=== PATIENT | female | born 1995 | race Caucasian/White ===

== ENCOUNTER 2025-01-21 12:35 | Outpatient (REF) | payer OTHER, SELFPAY ==
[2025-01-21 18:08] LABS: MANUAL DIFF FLAG NO
[2025-01-21 18:10] LABS: Appearance Urine Clear; Glucose Urine UA Negative (Negative); PH 7.5 (5.0-9.0); Specific Gravity - Urine 1.015 (1.005-1.025); UMIC TRIGGER UACC YES
[2025-01-21 18:15] LABS: Hematocrit 43.2 % (37.0-47.0); Hemoglobin 14.6 g/dl (12.0-16.0); Imm Gran Abs Auto 0.02 X10*3/uL (0.00-0.03); Imm Gran Pct Auto 0.3 % (0.0-0.4); Lymphocytes Absolute Auto 1.8 X10*3/uL (1.2-4.9); Mean Corpuscular HGB Conc 33.8 g/dl (31.0-35.0); Mean Corpuscular Hemoglobin 29.6 pg (27.0-33.0); Mean Corpuscular Volume 87.6 fL (80.0-98.0); NRBC Abs Auto 0.000 X10*3/uL (0.0-0.012); NRBC Pct Auto 0.0 /100WBC (0.0-0.2); Platelet Count 307 X10*3/uL (160-400); Red Blood Count 4.93 X10*6/uL (4.20-5.50); White Blood Count 7.5 X10*3/uL (4.8-10.8)
[2025-01-21 18:43] LABS: Alanine Aminotransferase 23 U/L (0-31); Albumin Level 5.1 g/dL (3.5-5.0); Alkaline Phosphatase 80 U/L (39-117); Anion Gap 12 (12-20); Aspartate Amino Transferase 25 U/L (5-31); Blood Urea Nitrogen 9 mg/dL (9-16); Calcium 9.9 mg/dL (8.4-10.2); Carbon Dioxide 27 mmol/L (22-29); Chloride 106 mmol/L (96-108); Cholesterol 169 mg/dL (<200); Estimated Glomerular Filt Rate > 60; HDL Cholesterol 54 mg/dL (>40); Potassium 4.0 mmol/L (3.3-5.1); Sodium 141 mmol/L (135-145); Total Protein 8.1 g/dL (6.5-8.0); Triglycerides 102 mg/dL (<150)
[2025-01-21 19:01] LABS: Folate 12.3 ng/mL (> or = 4.0); Vitamin B12 646 pg/mL (200-900)
[2025-01-22 03:12] LABS: CT PCR Urine NOT DETECTED (Not Detect.); NG PCR Urine NOT DETECTED (Not Detect.)
[2025-01-22 13:09] LABS: Syphilis Screen Nonreactive (Nonreactive)
[2025-01-22 13:33] LABS: HBS Num1 52.52 mIU/mL (0-7.99); HBsAGNum1 0.39 S/CO (0.00-0.99); HIV Num 1 0.05 S/CO (0.00-0.99); Hepatitis B Surface Antigen Negative (Negative); ~HepC Num1 0.13 S/CO (0.00-0.79); ~Hepatitis B Surface Antibody REACTIVE (Nonreactive); ~Hepatitis C Antibody Nonreactive (Nonreactive)
[2025-01-24 18:43] LABS: Chlamydia Trachomatis IgA <1:16 titer (<1:16)
[2025-01-25 23:08] LABS: VITAMIN D (1,25 OH) D3 62 pg/mL; Vit D (1,25-Dihydroxy) Total 62 pg/mL (18-72); Vitamin D (1,25 OH) D2 <8 pg/mL
== END 2025-01-21 12:36 | disposition home or self-care (01) ==
LOC: HO.HKASLDS 12:35
PROVIDERS: Visit Provider Student in an Organized Health Care Education/Training Program
DX: Z76.89 Persons encountering health services in other specified circumstances (principal); Z13.9 Encounter for screening, unspecified; Z13.31 Encounter for screening for depression; Z13.220 Encounter for screening for lipoid disorders; Z13.1 Encounter for screening for diabetes mellitus; Z13.6 Encounter for screening for cardiovascular disorders; Z11.4 Encounter for screening for human immunodeficiency virus [HIV]; Z20.2 Contact with and (suspected) exposure to infections with a predominantly sexual mode of transmission; E53.8 Deficiency of other specified B group vitamins; G43.009 Migraine without aura, not intractable, without status migrainosus; I49.9 Cardiac arrhythmia, unspecified; L70.0 Acne vulgaris
CPT/HCPCS: 80053; 80061; 81001; 82607; 82652; 82746; 83036; 85025; 86631; 86632; 86706; 86780; 86803; 87340; 87389; 87491; 87591; 96127

== ENCOUNTER 2025-01-21 12:35 | Outpatient (AMB) | payer OTHER, SELFPAY ==
--- NOTE | 2025-01-21 12:40 | A.OFFPC_ITS ---
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 Intake Note: vitamin b-12 check Customer Service Sales Consultant Required: No Accompanied by: Self / Same As Patient Allergies Iodinated Contrast Media (IV Contrast Dye) Allergy (Mild, Verified 01/21/25 12:47) Hives montelukast (From Singulair) Allergy (Mild, Verified 01/21/25 12:47) stomach pain Tobacco use date assessed: 01/21/25 Dental Screening Dental Screen Date: 01/21/25 Did you have a dental visit in the last 12 months?: No Did you have a dental problem in the last 6 months where you did not have access to dental care?: No Was dental information given to patient?: No HPI HPI Comments History of Present Illness Details History of Present Illness The patient is a 29-year-old female presenting with low Vitamin B12 levels, acne, and concerns about potential POTS and EDS. Low Vitamin B12 levels: - History of receiving monthly B12 injec tions for two years, with a family history of pernicious anemia. - No formal diagnosis of pernicious anem ia, and no recent B12 level checks since moving from [place]. Acne: - Currently managed with spironolactone 100 mg, previously prescribed by a abstracter. - No recent lab work related to spironol actone use, and aware of the need to monitor potassium levels. Suspected Postural Orthostatic Tachycardia Syndrome (POTS): - Symptoms include lightheadedness, ting ling, and numbness in arms and legs, with a suggestion from previous PCP and lehr cutter to pursue diagnosis. - No formal diagnosis or treatment initi ated yet. 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 - No formal diagnosis or treatment initi ated yet. Supraventricular Tachycardia (SVT): - Idiopathic SVT with no current medicat ion or recent emergency room visits. - Monitored by a lehr cutter once a mushtaq manzano Gastroparesis: - Diagnosed a few years ago, managed wit h Zofran for nausea, but no definitive treatment for gastroparesis. - Symptoms include occasional lingering nausea. Migraine: - Managed with Nurtec, with no further d etails provided. Review of Systems - Cardiovascular: Reports lightheadednes s and idiopathic supraventricular tachycardia. Denies recent emergency room visits for SVT. - Neurological: Reports tingling and num bness in arms and legs. Denies dizziness during examination. - Gastrointestinal: Reports occasional n ausea. Denies current treatment for gastroparesis. - Musculoskeletal: Reports hypermobility and joint dislocations without injury. Denies swelling in legs. - Dermatological: Reports acne managed w ith spironolactone. 10-point ROS reviewed and negative excep t as noted in HPI Past Medical History - Family history of pernicious anemia - History of gastroparesis - History of idiopathic supraventricular tachycardia Health Maintenance - Preventative care: Chlamydia, gonorrhe a, and syphilis screening discussed and agreed upon. - Vaccinations: Discussed need for flu a nd COVID vaccines, pending availability at the clinic. Physical Exam General: Well-appearing, in no acute distress. Vital signs: Within normal limits. HEENT: Normocephalic, atraumatic. PERRLA, EOMI. Conjunctiva clear, sclera anicteric. Oropharynx clear, mucous membranes moist. TMs intact bilaterally. Neck: Supple, no lymphadenopathy, no thyromegaly, no JVD or carotid bruits. Cardiovascular: RRR, normal S1/S2, no murmurs, rubs, or gallops. Peripheral pulses 2+ and symmetric. No edema. Respiratory: Lungs clear to auscultation bilaterally, no wheezes, rales, or rhonchi. Normal effort. Abdomen: Soft, non-tender, non-distended. Normoactive bowel sounds. No hepatosplenomegaly, no masses. MSK: Full range of motion, no joint swelling or deformity. Normal gait. Issues with hypermobility and joint dislocations, particularly in hands and knees. Skin: Warm, dry, intact. No rashes, lesions, or pallor. Neuro: Alert and oriented x3. Cranial nerves II-XII intact. Strength 5/5 throughout. Sensation intact. Reflexes 2+ symmetric. Normal coordination and gait. Reports lightheadedness, tingling, and numbness in arms and legs. Psych: Appropriate mood and affect. Normal judgment and insight. Plan 1. Low Vitamin B12 Levels - Plan to check Vitamin B12 levels and c onsider further evaluation for pernicious anemia if levels are low. 2. 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 3. Migraine - Continue current management with Nurte c. 4. Supraventricular Tachycardia (Svt) - Continue annual cardiology follow-up f or monitoring SVT. 5. Suspected Postural Orthostatic Tachyc ardia Syndrome (Pots) - Plan to discuss further diagnostic guerrero luation for POTS in future visits. 6. Gastroparesis - No current treatment plan, but monitor symptoms and consider further evaluation if symptoms persist. 7. Acne - Refill spironolactone prescription and monitor potassium levels due to medication use. Discussion Notes During the visit, we discussed the need to check Vitamin B12 levels and consider further evaluation for pernicious anemia. We also addressed the refill of spironolactone for acne and the importance of monitoring potassium levels. F uture diagnostic evaluations for suspected POTS and EDS were considered, and the patient was advised to continue annual cardiology follow-ups for SVT. We also discussed the management of gastroparesis symptoms and the continuation of Nurtec for migraines. Preventative care measures, including STI screening and vaccinations, were also reviewed. Patient Instructions - Schedule a follow-up appointment to re view lab results and discuss further evaluation for POTS and EDS. - Continue taking spironolactone as pres cribed and monitor for any side effects. - Follow up with your lehr cutter casey tejada for SVT monitoring. - Monitor gastroparesis symptoms and rep ort any changes. - Continue using Nurtec for migraine man agement. - Complete STI screening as discussed. - Plan to receive flu and COVID vaccines when available. PFSH Family History (Updated 01/21/25 @ 12:51 by Brinda Campos MA) Father FH: kidney cancer High blood pressure Mother Skin cancer Cardiac arrhythmia Mitral valve prolapse Arthritis Social History (Updated 01/21/25 @ 12:52 by Brinda Campos MA) Housing: Apartment Alcohol intake: current Alcohol intake frequency: a few times a week Patient Tobacco Use Status: Never used Tobacco service: No Current occupational status: employed Cognitive needs: No Hearing needs: No Vision needs: No Questionnaire PHQ-9 Over the last 2 weeks, how often have you been bothered by any of the following problems? 1. Little interest or pleasure in doing things: not at all 2. Feeling down, depressed, or hopeless: not at all 3. Trouble falling or staying asleep, or sleeping too much: several days 4. Feeling tired or having little energy: several days 5. Poor appetite or overeating: several days 6. Feeling bad about yourself - or that you are a failure or have let yourself or your family down: not at all 7. Trouble concentrating on things, such as reading the newspaper or watching television: not at all 8. Moving or speaking so slowly that other people could have noticed. Or the opposite - being so fidgety or restless that you have been moving around a lot more than usual: not at all 9. Thoughts that you would be better off or of hurting yourself in some way: not at all Total score: 3 Source: Developed by Drs. Anthony Enciso, Linh Hernandez, Nael Blum and colleagues, with an educational zenobia from [employer]. Thrive Questionnaire Date Thrive assessed: 01/14/25 I am a: Patient What is your living situation today?: I have a steady place to live Within the past 12 months, did the food you bought not last and you didn't have the money to get more?: Never true Within the past 12 months, did you worry whether your food would run out before you got money to buy more?: Never true Do you have trouble paying for medicines?: No Do you have trouble getting transportation to medical appointments?: No Do you have trouble paying your heating and electricity bill?: No Do you have trouble taking care of your child, family member or friend?: No Do you have trouble with day-to-day activities such as bathing, preparing meals, shopping, managing finances, etc.?: No Are you currently unemployed and looking for a job?: No Are you interested in more education?: No Please select the resources that you would like help with: None Currently or been in a relationship where the following occur: I choose not to answer THRIVE Score: 0 AUDIT C Alcohol Use Questionnaire (AUDIT-C) 1. How often do you have a drink containing alcohol?: 2-4 times a month 2. How many drinks containing alcohol do you have on a typical day when you are drinking?: 1 or 2 3. How often do you have six or more drinks on one occasion?: Less than monthly Total Score: 3 ALEM-7 AMB Questionnaire ALEM-7 Date ALEM - 7 assessed: 01/21/25 Feeling nervous, anxious, or on edge: 1 = Several days Not being able to stop or control worryin = Not at all Worrying too much about different things: 0 = Not at all Trouble relaxin = Several days Being so restless that it is hard to sit still: 0 = Not at all Becoming easily annoyed or irritable: 1 = Several days Feeling afraid as if something awful might happen: 0 = Not at all Total ALEM-7 score (0-4 normal; 5-9 mild; 10-14 moderate; 15-21 severe): 3 Source: Developed by Drs. Anthony Enciso, Linh Hernandez, Nael Blum and colleagues, with an educational zenobia from [employer]. Physical exam (Primary Care) Vital Signs: Last Vital Signs Temp 97.6 F 01/21/25 12:44 Pulse 86 01/21/25 12:44 Resp 16 01/21/25 12:44 BP 100/76 01/21/25 12:44 Pulse Ox 98 01/21/25 12:44 Oxygen Delivery Method Room Air 01/21/25 12:44 BMI result Body Mass Index 23.3 Tobacco/Smoking Status: Tobacco use Status Tobacco use date assessed 01/21/25 01/21/25 12:42 Patient Tobacco Use Status Never used Tobacco 01/21/25 12:52 PHQ-9: PHQ-9 Score PHQ-9: Total score 3 01/21/25 12:55 Thrive Assessment: Date of Thrive Assessment Date Thrive assessed 01/14/25 01/21/25 12:42 Currently or been in a relationship where the following occur: I choose not to answer Coding Level of Care Code New Pt Level 3 (20637) Diagnoses Encounter to establish care with new provider Z76.89 Encounter for screening, unspecified Z13.9 Screening for depression Z13.31 Screening for lipoid disorders Z13.220 Screening for diabetes mellitus Z13.1 Hypertension screen Z13.6 Routine screening for STI (sexually transmitted infection) Z11.3 Screening for HIV (human immunodeficiency virus) Z11.4 B12 deficiency E53.8 Migraine without aura and without status migrainosus, not intractable G43.009 Migraine type: migraine (< 15 days per month) without aura Status migrainosus presence: without status migrainosus Intractability: not intractable Supraventricular arrhythmia I49.9 Acne vulgaris L70.0 Acne type: acne vulgaris Assessment & Plan Assessment & Plan (1) Encounter to establish care with new provider: Code(s): Z76.89 - Persons encountering health services in other specified circumstances (2) Encounter for screening, unspecified: Code(s): Z13.9 - Encounter for screening, unspecified (3) Screening for depression: Code(s): Z13.31 - Encounter for screening for depression (4) Screening for lipoid disorders: Code(s): Z13.220 - Encounter for screening for lipoid disorders (5) Screening for diabetes mellitus: Code(s): Z13.1 - Encounter for screening for diabetes mellitus (6) Hypertension screen: Code(s): Z13.6 - Encounter for screening for cardiovascular disorders (7) Routine screening for STI (sexually transmitted infection): Code(s): Z11.3 - Encounter for screening for infections with a predominantly sexual mode of transmission (8) Screening for HIV (human immunodeficiency virus): Code(s): Z11.4 - Encounter for screening for human immunodeficiency virus [HIV] (9) B12 deficiency: Code(s): E53.8 - Deficiency of other specified B group vitamins (10) Migraine: Code(s): G43.909 - Migraine, unspecified, not intractable, without status migrainosus Qualifiers: Migraine type: migraine (< 15 days per month) without aura Status migrainosus presence: without status migrainosus Intractability: not intractable Qualified Code(s): G43.009 - Migraine without aura, not intractable, without status migrainosus (11) Supraventricular arrhythmia: Code(s): I49.9 - Cardiac arrhythmia, unspecified (12) Acne: Code(s): L70.9 - Acne, unspecified Qualifiers: Acne type: acne vulgaris Qualified Code(s): L70.0 - Acne vulgaris Plan Orders: Orders Hepatitis B Surface Antigen Today Z13.9 - Encounter for screening, unspecified, Z76.89 - Persons encountering health services in other specified circumstances HIV Ab/Ag Today Z13.9 - Encounter for screening, unspecified, Z76.89 - Persons encountering health services in other specified circumstances Lipid Panel Today Z13.9 - Encounter for screening, unspecified, Z76.89 - Persons encountering health services in other specified circumstances Vitamin B12 and Folate Today Z13.9 - Encounter for screening, unspecified, Z76.89 - Persons encountering health services in other specified circumstances Vitamin D 1,25 dihydroxy Today Z13.9 - Encounter for screening, unspecified, Z76.89 - Persons encountering health services in other specified circumstances Chlamydia Species Ab Panel Today Z13.9 - Encounter for screening, unspecified, Z76.89 - Persons encountering health services in other specified circumstances Syphilis Screen Today Z13.9 - Encounter for screening, unspecified, Z76.89 - Persons encountering health services in other specified circumstances Complete Blood Count Auto Diff Today Z13.9 - Encounter for screening, unspecified, Z76.89 - Persons encountering health services in other specified circumstances Comprehensive Met. Panel Today Z13.9 - Encounter for screening, unspecified, Z76.89 - Persons encountering health services in other specified circumstances Hemoglobin A1c Today Z13.9 - Encounter for screening, unspecified, Z76.89 - Persons encountering health services in other specified circumstances Hepatitis B Surface Antibody Today Z13.9 - Encounter for screening, unspecified, Z76.89 - Persons encountering health services in other specified circumstances Hepatitis C Antibody Today Z13.9 - Encounter for screening, unspecified, Z76.89 - Persons encountering health services in other specified circumstances UA CC w/rflx Micro + Cult Today Z13.9 - Encounter for screening, unspecified, Z76.89 - Persons encountering health services in other specified circumstances CT NG by PCR Urine Today Z13.9 - Encounter for screening, unspecified, Z76.89 - Persons encountering health services in other specified circumstances
[2025-01-21 12:44] VITALS: BP 100/76; PULSE 86; RESP 16; TEMP 36.4; O2SAT 98; BMI 23.3
== END 2025-01-21 13:15 | disposition home or self-care (01) ==
LOC: HO.HMCFMS 12:35
PROVIDERS: Visit Provider Student in an Organized Health Care Education/Training Program
DX: G43.009 Migraine without aura, not intractable, without status migrainosus (principal); E53.8 Deficiency of other specified B group vitamins; I49.9 Cardiac arrhythmia, unspecified; L70.0 Acne vulgaris

== ENCOUNTER 2025-03-04 13:46 | Outpatient (AMB) | payer OTHER, SELFPAY ==
--- NOTE | 2025-03-04 13:48 | A.OFFVIS_ITS ---
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 POTS Intake Note: New patient lightheaded hx SVT ? 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 Patient says she has had history of palpitations for 15 years. She says she gets 2 different kinds of palpitation where she feels rapid heart rate as well as fluttering in his chest. She has had Holter monitor and had in the past has been diagnose with SVT. The last Holter monitor was done about a year ago. I have asked her if she can get a copy of that report to us to review it. However since few months she has been noticing symptoms of lightheadedness especially when she gets up suddenly. She has not had actual syncopal episode. She notices elevated heart rate with it. She has since then tried to manage this with increase fluid intake and this has resulted in improved symptoms although she continues to have the se symptoms. She has been referred here for further evaluation. She is currently taking spironolactone for acne. She has no exertional chest pain or shortness of breath. She has no orthopnea, PND, leg edema. She has skeletal hypermobility and is currently being evaluated for connective tissue disorder such as Issac-Danlos. Family history of mother having mitral valve prolapse PFSH Medical History Issac-Danlos disease POTS (postural orthostatic tachycardia syndrome) Family History Father FH: kidney cancer High blood pressure Mother Skin cancer Cardiac arrhythmia Mitral valve prolapse Arthritis Social History Housing: Apartment Alcohol intake: current Alcohol intake frequency: a few times a week Patient Tobacco Use Status: Never used Tobacco service: No Current occupational status: employed Cognitive needs: No Hearing needs: No Vision needs: No Review of Systems Const Denies chills, Denies daytime sleepiness, Denies fatigue, Denies fever(s), Denies frequent falls, Denies poor appetite, Denies snoring, Denies stops breathing during sleep, Denies weakness, Denies weight gain and Denies weight loss Eyes Denies loss of vision ENT Reports dizziness and Denies hearing loss Card Denies chest pain, Denies claudication, Denies leg edema, Reports lightheadedness, Reports palpitations, Denies dyspnea, Denies dyspnea on exertion and Denies orthopnea Resp Denies cough, Denies excessive phlegm production, Denies dyspnea, Denies dyspnea on exertion, Denies snoring and Denies wheezing GI Denies abdominal pain, Denies hematochezia, Denies change in bowel habits, Denies nausea and Denies vomiting Denies urinary frequency and Denies dysuria Musc Denies arthralgias, Denies muscle weakness and Denies numbness Skin/Breast Denies nail changes and Denies rash Neuro Denies Abnormal speech present, Reports dizziness, Denies frequent falls, Denies loss of vision, Denies memory loss, Denies numbness and Denies weakness Psych Denies depression and Denies memory loss Endo Denies fatigue and Reports palpitations Raj/Lymph Reports easy bruising and Reports other (anemia) Aller/Immun Denies wheezing Physical Exam Vital Signs: Last Vital Signs Pulse 68 03/04/25 14:09 BP 120/72 03/04/25 14:09 BMI result Body Mass Index 23.3 Const General: cooperative, comfortable, no acute distress, well developed, alert, awake and Physically active Nutritional Appearance: well nourished and thin Orientation/consciousness: patient oriented x3 Limitations: no limitations HEENT Head: Yes normocephalic and Yes atraumatic Neck Neck: Yes trachea midline, Yes supple and Yes no JVD Resp Effort & Inspection: normal respiratory effort Auscultation: clear to auscultation bilaterally Cardio Jugular venous distension: no JVD Palpation: normal PMI Rate: regular rate Rhythm: regular rhythm Heart sounds: S1 normal heart sound present, S2 normal heart sound present, no click, no gallops, no murmurs and no rubs GI Auscultation: normal bowel sounds Skin General skin exam: no rashes or lesions noted Neuro General: patient oriented x3 and no focal motor deficits Speech: No Abnormal speech present Extrem General: Yes no clubbing, cyanosis or edema Psych Appearance: grossly normal Assessment & Plan Assessment & Plan (1) Lightheadedness: Code(s): R42 - Dizziness and giddiness Category: Medical Plan: Patient with a possibility of connective tissue disorder with symptoms of lightheadedness. She has no significant EKG abnormalities. However she is likely to have postural orthostatic tachycardia or some form of dysautonomia. She needs further evaluation for the same. We had a long discussion about autonomic dysfunction with subsequent syndrome as off POTS as well as vasovagal syncope. Most important treatment is increase fluid as well as salt intake. She has started to do that. Given her family history of mitral valve prolapse as well as her history of skeletal hypermobility will evaluate for structural cardiac abnormality with an echocardiogram especially to evaluate for aortic size as well as mitral valve prolapse as LV function. Echocardiogram will be done in near future. To diagnose and evaluate for dysautonomia will suggest a head-up tilt-table test. These tests will be scheduled in near future. She understands agrees. Will acquire her older Holter monitor. If she continues to have significant symptoms of palpitation may require further fdc monitoring and this was discussed with her. We discussed about potentially investing in smart phone based EKG sensor. She will look into it. Will follow up in the clinic after above-mentioned test. Thank you for allowing me to partake in her care Orders: Orders ECG Tilt Table Test 03/04/25 R42 - Dizziness and giddiness CA echo transthoracic complete 03/04/25 R42 - Dizziness and giddiness Coding Level of Care Code New Pt Level 4 (24119) Complex EM visit Add On G2211 Diagnoses Lightheadedness R42
[2025-03-04 13:49] VITALS: BP 131/79; PULSE 70; BMI 23.3
[2025-03-04 14:05] VITALS: BP 124/70; PULSE 65
[2025-03-04 14:09] VITALS: BP 120/72; PULSE 68
== END 2025-03-04 14:29 | disposition home or self-care (01) ==
LOC: HO.HCS 13:46
PROVIDERS: PCP Student in an Organized Health Care Education/Training Program; Visit Provider Internal Medicine Cardiovascular Disease
DX: R42 Dizziness and giddiness (principal)
CPT/HCPCS: 99204

== ENCOUNTER → 2025-04-05 10:41 | Outpatient (REF) | payer OTHER, SELFPAY ==
--- NOTE | 2025-04-05 10:43 | CA_ITS ---
Transthoracic Echocardiogram Patient (Last, First, Middle): Diallo Pandey, Gender: Female Date of : 1995 Age: 29 Procedure Date: 04/05/2025 Procedure Type: Transthoracic Echocardiogram Location: OP Height: 177.8 cm Weight: 72.58 kg BSA: 1.90 m2 Heart Rate: 60 bpm BP: 116 / 60 mmHg Complex Manager: DANYA Referring MD: Nolan Hinojosa MD Symptoms: R42 - Dizziness and giddiness Study Quality: Adequate ECG Rhythm: Sinus Conclusions: - The left ventricular systolic function is normal. The visually estimated ejection fraction is between 55-60%. - No obvious valvular pathology seen on this study. Findings Left Ventricle Normal left ventricular cavity size. There is normal left ventricular wall thickness. The left ventricular systolic function is normal. The visually estimated ejection fraction is between 55-60%. There is no evidence of regional wall motion abnormalities. Diastolic function is normal for age. Right Ventricle Normal right ventricular cavity size and systolic function. Atria Both atria are normal in size. Aortic Valve There is a normal trileaflet aortic valve. There is no aortic valve stenosis. There is no aortic valve regurgitation. Mitral Valve The mitral valve appears normal. There is trace mitral valve regurgitation. There is no mitral valve stenosis. Pulmonic Valve The pulmonic valve is likely normal. Tricuspid Valve Normal tricuspid valve structure. There is trace tricuspid valve regurgitation. There is no evidence of pulmonary hypertension. Great Vessels The asc aorta is normal in size. Venous The inferior vena cava is normal in size and collapses greater than 50% with inspiration. Pericardium/Pleural There is no evidence of pericardial effusion. Prior Study Comparison No prior study available for comparison. Recommendations, Care & Conclusions No obvious valvular pathology seen on this study. Measurements 2D Linear Measurements IVSd: 0.84 0.6-0.9/0.6-1.0 cm LVIDd: 4.96 3.9-5.3/4.2-5.9 cm LVIDd Index: 2.61 2.4-3.2/2.2-3.1 cm/m2 LVIDs: 3.54 2.0-3.6 cm LVPWd: 0.73 0.7-1.1 cm LA Diam: 3.20 2.7-3.8/3.0-4.0 cm LAIDs Index: 1.68 1.5-2.3 cm/m2 LV Mass: 163.08 67-162/88-224 g LV Mass Index: 85.83 43-95/49-115 g/m2 LVOT Diam: 2.00 3.0+(-)1.3 cm 2D Systolic Function EF 4C: 55.50 >55% EF 2C: 71.90 >55% EF BiP: 66.20 >55% Mitral Valve MV Pk E: 0.68 MV PK A: 0.58 MV Decel Time: 202.00 E/A: 1.20 E'Lateral: 15.10 E'Medial: 11.10 E/E' Med: 6.10 E/E' Lat: 4.50 PHT: 59.00 MVA PHT: 3.73 Decel [place]: 3.35 Aortic Valve AoV Pk Brant: 1.13 AoV Mn Brant: 0.71 AoV VTI: 0.30 AoV Pk Grad: 5.00 Aov Mn Grad: 2.00 ZAK Cont.VTI: 2.39 LVOT LVOT Pk Brant: 1.01 LVOT Mn Brant: 0.69 LVOT VTI: 0.23 LVOT Pk Grad: 4.00 LVOT Mn Grad: 2.00 LVOT Diam: 2.00 LVOT Area: 3.14 Diastolic Function MV Pk E: 0.68 MV Pk A: 0.58 E/A: 1.20 E'Medial: 11.10 E/E' Med: 6.10 E' Laterial: 15.10 E/E' Lat: 4.50 Right Ventricle TAPSE (mm): 25.40 TVS' Brant: 11.70 Tricuspid Valve TR Pk Brant: 2.29 TR Pk Grad: 21.00 RA Press: 3.00 RVSP: 24.00 Great Vessels Aorta Sinus of Valsalva: 2.80 2.0-3.5 cm Ao Asc: 2.90 2.1-3.4 cm Pulmonary Veins Pulm Vein S/D 2.10 Pulmonary Valve PV Pk Brant: 0.86 Peak PV Grad: 3.00 Updated in Other Vendor System with Status of Final Mark Perez MD electronically signed on 04/06/2025 1:29:33 PM with status of Final
--- OUTSIDE RECORDS SUMMARY | 2025-04-05 12:48 | XMS_ITS | Clinical Summary ---
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 Name Role Phone Unavailable Primary Care Provider Unavailabl e Social History Tobacco Use Types Packs/Day Years Used Date Smoking Tobacco: Never Assessed Comments Unknown Sex and Gender Information Value Date Recorded Sex Assigned at Not on file Legal Sex Female 10:48 AM EST Gender Identity Not on file Sexual Orientation Not on file Plan of Treatment Upcoming Encounters Date Type Department Care Team (Late st Contact Info) Description 06/18/2025 2:30 PM EST Appointment [facility] [address] [place] [address] Health Maintenance Due Date Last Done Comments DTaP,Tdap,and Td Vaccines (1 - Tdap) 2016 Hepatitis B Vaccines (1 of 3 - 19+ 3-dose series) 2016 Cervical Cancer Screening: P ap Smear 2018 HPV Vaccines (1 - 3-dose SCD M series) 2024 Depression Screening 05/02/2024 COVID-19 Vaccine ( - 2024-2 6 season) 2024 Influenza Vaccine (#1) 2024 HIV Screening 03/08/2025 Hepatitis C Screening 03/08/2025 Social Influencers of Health Screening 03/08/2025 RSV Immunization Adult Patie nts (1 - 1-dose 75+ series) 2072 HIB Vaccines Aged Out No longer eligi ble based on patient's age to complete this topic Hepatitis A Vaccines Aged Out No long er eligible based on patient's age to complete this topic IPV Vaccines Aged Out No longer eligi ble based on patient's age to complete this topic MMR Vaccines Aged Out No longer eligi ble based on patient's age to complete this topic Meningococcal ACWY Vaccine Aged Out N o longer eligible based on patient's age to complete this topic Meningococcal B Vaccine Aged Out No l onger eligible based on patient's age to complete this topic Pneumococcal Vaccine: Pediat rics (0 to 5 Years) and At-Risk Patients (6 to 49 Years) Aged Out No longer eligible b ased on patient's age to complete this topic RSV Immunization Patients Un araseli 20 months Aged Out No longer eligible b ased on patient's age to complete this topic Varicella Vaccines Aged Out No longer eligible based on patient's age to complete this topic Insurance [facility])
== END ==
LOC: HO.CARD 10:41
PROVIDERS: PCP Student in an Organized Health Care Education/Training Program; Visit Provider Internal Medicine Cardiovascular Disease
DX: R42 Dizziness and giddiness (principal)
CPT/HCPCS: 93306

== ENCOUNTER → 2025-04-05 10:43 | Outpatient (BNV) | payer OTHER, SELFPAY | PROVIDERS: PCP Student in an Organized Health Care Education/Training Program; Visit Provider Internal Medicine | DX: R42 Dizziness and giddiness (principal) | CPT/HCPCS: 93306 ==